=== PATIENT | female | born 1975 | race African-American/Black ===

== ENCOUNTER 2024-11-06 18:37 | Inpatient (IN) | payer OTHER ==
[~2024-11-06] VITALS: Ht 157.5 cm; Wt 60.3 kg
[2024-11-06 19:15] LABS: RED BLOOD CELL COUNT(AUTO) 4.52 MIL/uL (4.0-5.2); RED CELL DISTRIBUTION WIDTH 15.4 % (11.5-15.0); WHITE BLOOD COUNT (AUTO) 19.8 K/uL (4.3-11.0)
[2024-11-06] MEDS ORDERED: VANCOMYCIN 1 GM /D5W 250 ML PB IV ONE (19:15)
[2024-11-06] MEDS ORDERED: MEROPENEM 1 G VIAL IV ONE (19:15)
[2024-11-06] MEDS: MEROPENEM 1 G in IV NS 0.9% 100 ML IV ONE (19:21)
[2024-11-06 19:25] LABS: CALCIUM, SERUM 10.5 mg/dL (8.5-10.1); CREATININE 0.7 mg/dL (0.6-1.3); SODIUM SERUM 135 mmol/L (136-145); UREA NITROGEN, BLOOD 19 mg/dL (7-18)
[2024-11-06] MEDS: IV NS 0.9% 1,000 ML BAG IV ONE ×2 (19:29→21:01)
[2024-11-06 19:31] LABS: ASPARTATE AMINOTRANSFERASE 88 U/L (15-37); TOTAL PROTEIN, SERUM 8.2 g/dL (6.4-8.2)
[2024-11-06 19:36] LABS: INR 1.26 (0.91-1.10)
[2024-11-06 19:39] LABS: LACTIC ACID 2.5 mmol/L (0.4-2.0)
[2024-11-06 19:42] LABS: PLATELET COUNT (AUTO) 131 K/uL (150-450)
[2024-11-06] MEDS: VANCOMYCIN 1 GM in IV D5W 250 ML IV ONE (19:58)
[2024-11-06 20:24] LABS: APPEARANCE,URINE BLOODY (CLEAR)
[2024-11-06 20:31] LABS: FINE GRANULAR CASTS,URINE Rare /LPF (None Seen)
[2024-11-06] MEDS: ENOXAPARIN SODIUM 40 MG/0.4 ML DISP.SYRIN SQ SCH (22:30)
[2024-11-06] MEDS ORDERED: ONDANSETRON HCL/PF 4 MG/2 ML VIAL IVP PRN (22:30)
[2024-11-06] MEDS ORDERED: ACETAMINOPHEN 650 MG/SUPP.RECT RC PRN ×2 (22:30→23:00)
[2024-11-06] MEDS ORDERED: DOSING PER PHARMACY-VANCOMYCIN IV XX PRN (22:30)
[2024-11-06] MEDS: IV NS 0.9% 1,000 ML IV PRN (23:06)
[2024-11-07 04:00] VITALS: BP 96/74; TEMP 98.4; O2SAT 98
[2024-11-07] MEDS: MEROPENEM 500 MG in IV NS 0.9% 50 ML IV ONE (04:48)
[2024-11-07] MEDS ORDERED: MEROPENEM 500 MG in IV NS 0.9% 50 ML IV SCH (05:00)
[2024-11-07 06:55] LABS: PLATELET COUNT (AUTO) 112 K/uL (150-450); RED BLOOD CELL COUNT(AUTO) 3.86 MIL/uL (4.0-5.2); RED CELL DISTRIBUTION WIDTH 15.3 % (11.5-15.0); WHITE BLOOD COUNT (AUTO) 15.0 K/uL (4.3-11.0)
[2024-11-07 07:25] LABS: ASPARTATE AMINOTRANSFERASE 53.0 U/L (15-37); CALCIUM, SERUM 9.3 mg/dL (8.5-10.1); CREATININE 0.6 mg/dL (0.6-1.3); PHOSPHORUS 2.5 mg/dL (2.5-4.9); SODIUM SERUM 140.0 mmol/L (136-145); TOTAL PROTEIN, SERUM 6.8 g/dL (6.4-8.2); UREA NITROGEN, BLOOD 15.0 mg/dL (7-18)
[2024-11-07 08:00] VITALS: BP 114/79; TEMP 98.2; O2SAT 100
[2024-11-07 08:23] LABS: LACTIC ACID 2.2 mmol/L (0.4-2.0)
[2024-11-07] MEDS: MEROPENEM 500MG/NS 50 ML PB IV ONE (08:26)
[2024-11-07] MEDS: PANTOPRAZOLE 40 MG VIAL IV SCH (08:42)
[2024-11-07] MEDS: VANCOMYCIN 1 GM in IV D5W 250ml IV SCH (09:32)
[2024-11-07] MEDS ORDERED: ONDA-97 GT (10:21)
[2024-11-07] MEDS ORDERED: NA P133E RC (10:21)
[2024-11-07] MEDS ORDERED: MAGN400O6 GT (10:21)
[2024-11-07] MEDS ORDERED: OMEP20TA5 GT (10:21)
[2024-11-07] MEDS ORDERED: LEVE100S GT (10:21)
[2024-11-07] MEDS ORDERED: GABA300C PO (10:21)
[2024-11-07] MEDS ORDERED: EZET10TA32 GT (10:21)
[2024-11-07] MEDS ORDERED: MAGN400T52 GT (10:21)
[2024-11-07] MEDS ORDERED: DIVA125C2 GT (10:21)
[2024-11-07] MEDS ORDERED: OXYC5TAB3 GT (10:21)
[2024-11-07] MEDS ORDERED: ATOR10TA GT (10:21)
[2024-11-07] MEDS ORDERED: BISA10SU11 RC (10:21)
[2024-11-07] MEDS ORDERED: LACO10SO GT (10:21)
[2024-11-07] MEDS ORDERED: METO25TA20 GT (10:21)
[2024-11-07] MEDS ORDERED: CHOL100043 GT (10:21)
[2024-11-07] MEDS: THERAHONEY GEL 1.5 OZ TUBE TP SCH (11:05)
[2024-11-07 12:00] VITALS: BP 140/96; TEMP 98.2; O2SAT 100
[2024-11-07] MEDS: MEROPENEM 1 G in IV NS 0.9% 100 ML IV SCH (12:40)
[2024-11-07] MEDS ORDERED: oxyCODONE/APAP (5/325 MG) 1 UDTAB TABLET GT PRN (14:00)
[2024-11-07] MEDS: JEVITY 1.2 CAL 1,000 ML BOTTLE GT PRN (14:14)
[2024-11-07] MEDS: oxyCODONE IR immediate release 5 MG TABLET GT PRN (14:42)
[2024-11-07 16:00] VITALS: BP 127/85; TEMP 98.5; O2SAT 100
[2024-11-07 20:00] VITALS: BP 129/93; TEMP 102.4; O2SAT 97
[2024-11-08] VITALS: BP 140/99; TEMP 99.1; O2SAT 100
[2024-11-08 04:00] VITALS: BP 135/95; TEMP 99.5; O2SAT 97
[2024-11-08 07:15] LABS: PLATELET COUNT (AUTO) 113 K/uL (150-450); RED BLOOD CELL COUNT(AUTO) 3.74 MIL/uL (4.0-5.2); RED CELL DISTRIBUTION WIDTH 14.5 % (11.5-15.0); WHITE BLOOD COUNT (AUTO) 4.8 K/uL (4.3-11.0)
[2024-11-08 07:59] LABS: ASPARTATE AMINOTRANSFERASE 33.0 U/L (15-37); CALCIUM, SERUM 9.8 mg/dL (8.5-10.1); CREATININE 0.4 mg/dL (0.6-1.3); PHOSPHORUS 2.1 mg/dL (2.5-4.9); TOTAL PROTEIN, SERUM 7.1 g/dL (6.4-8.2); UREA NITROGEN, BLOOD 10.0 mg/dL (7-18)
[2024-11-08 08:08] LABS: SODIUM SERUM 137.0 mmol/L (136-145)
[2024-11-08] MEDS: PANTOPRAZOLE 40 MG/PACK PACK GT SCH (08:33)
[2024-11-08 09:32] VITALS: BP 143/110; TEMP 97.7; O2SAT 98
[2024-11-08] MEDS: POTASSIUM CHLORIDE 20 MEQ POWDER PACKET GT ONE (11:06)
[2024-11-08 12:00] VITALS: BP 144/106; TEMP 97.5; O2SAT 96
[2024-11-08 16:00] VITALS: BP 131/105; TEMP 98.1; O2SAT 96
[2024-11-08] MEDS: NEUTRA PHOS 1 POWD.PACKET GT ONE (16:13)
[2024-11-08 20:00] VITALS: BP 132/98; TEMP 97.7; O2SAT 98
[2024-11-09] VITALS (7 sets, daily range): BP systolic 111–137; BP diastolic 44–100; TEMP 98–98.8; O2SAT 92–100
[2024-11-09 07:13] LABS: PLATELET COUNT (AUTO) 142 K/uL (150-450); RED BLOOD CELL COUNT(AUTO) 3.61 MIL/uL (4.0-5.2); RED CELL DISTRIBUTION WIDTH 14.7 % (11.5-15.0); WHITE BLOOD COUNT (AUTO) 3.3 K/uL (4.3-11.0)
[2024-11-09 07:31] LABS: ASPARTATE AMINOTRANSFERASE 25.0 U/L (15-37); CALCIUM, SERUM 9.7 mg/dL (8.5-10.1); CREATININE 0.5 mg/dL (0.6-1.3); PHOSPHORUS 2.0 mg/dL (2.5-4.9); SODIUM SERUM 142.0 mmol/L (136-145); TOTAL PROTEIN, SERUM 7.1 g/dL (6.4-8.2); UREA NITROGEN, BLOOD 10.0 mg/dL (7-18)
[2024-11-09] MEDS: LORAZEPAM INJ 2 MG/ML VIAL IV PRN (11:06)
[2024-11-09] MEDS: POTASSIUM CHLORIDE 20 MEQ POWDER PACKET GT SCH (11:06)
[2024-11-09] MEDS: LEVETIRACETAM SOL (5 ML) 100 MG/ML UDC GT SCH (12:00)
[2024-11-09 12:16] LABS: VALPROIC ACID 3.0 ug/mL (50-100)
[2024-11-09] MEDS: LEVETIRACETAM (500MG) 2,000 MG in IV NS 0.9% 80 ML IV ONE (12:21)
[2024-11-09] MEDS: LACOSAMIDE 200 MG in IV NS 0.9% 100 ML IV ONE (12:21)
[2024-11-09] MEDS: DIVALPROEX SODIUM 125 MG CAP.SPRINK GT SCH (12:22)
[2024-11-09] MEDS: GABAPENTIN 300 MG CAPSULE GT SCH (12:23)
[2024-11-09] MEDS: LACOSAMIDE ORAL SOLN 50 MG/5 ML UDC GT SCH (12:26)
[2024-11-09] MEDS: Sodium Phosphate 30 MMOL in IV NS 0.9% 250 ML IV SCH (12:59)
[2024-11-09 14:37] LABS: EOSINOPHILS % (MANUAL) 1 % (0-4); LYMPHOCYTES % (MANUAL) 14 % (16-48); MONOCYTES % (MANUAL) 15 % (0-11.0); NEUTROPHILS % (MANUAL) 70 (42-76); PLATELET ESTIMATE ADEQUATE
[2024-11-09] MEDS: METOPROLOL TARTRATE 25 MG TABLET GT SCH (17:36)
[2024-11-09] MEDS ORDERED: LEVETIRACETAM (500MG) 1,500 MG in IV NS 0.9% 85 ML IV SCH (21:00)
[2024-11-09] MEDS ORDERED: LACOSAMIDE 100 MG in IV NS 0.9% 50 ML IV SCH (21:00)
[2024-11-09] MEDS: EZETIMIBE 10 MG TABLET GT SCH (21:25)
[2024-11-09] MEDS: ATORVASTATIN 10 MG TABLET GT SCH (21:25)
[2024-11-09 22:45] LABS: PREGNANCY TEST URINE QUAL NEGATIVE (NEGATIVE)
[2024-11-10] VITALS: BP 125/84; TEMP 98.3; O2SAT 100
[2024-11-10 04:00] VITALS: BP 102/85; TEMP 98.4; O2SAT 100
[2024-11-10 08:00] VITALS: BP 115/82; TEMP 98.2; O2SAT 99
[2024-11-10 12:00] VITALS: BP 131/93; TEMP 98.3; O2SAT 100
[2024-11-10 16:00] VITALS: BP 135/98; TEMP 98.4; O2SAT 100
[2024-11-10 16:02] LABS: PLATELET COUNT (AUTO) 193 K/uL (150-450); RED BLOOD CELL COUNT(AUTO) 3.57 MIL/uL (4.0-5.2); RED CELL DISTRIBUTION WIDTH 14.2 % (11.5-15.0); WHITE BLOOD COUNT (AUTO) 3.1 K/uL (4.3-11.0)
[2024-11-10 16:14] LABS: CALCIUM, SERUM 9.3 mg/dL (8.5-10.1); CREATININE 0.4 mg/dL (0.6-1.3); SODIUM SERUM 144.0 mmol/L (136-145); UREA NITROGEN, BLOOD 6.0 mg/dL (7-18)
[2024-11-10 16:18] LABS: PHOSPHORUS 2.4 mg/dL (2.5-4.9)
[2024-11-10 20:00] VITALS: BP 118/83; TEMP 98.8; O2SAT 100
[2024-11-11] VITALS: BP 128/89; TEMP 98.4; O2SAT 100
[2024-11-11 01:07] LABS: FOLIC ACID 16.3 ng/mL (>3.0)
[2024-11-11 04:00] VITALS: BP 130/94; TEMP 98.4; O2SAT 100
[2024-11-11 06:50] LABS: PLATELET COUNT (AUTO) 212 K/uL (150-450); RED BLOOD CELL COUNT(AUTO) 3.65 MIL/uL (4.0-5.2); RED CELL DISTRIBUTION WIDTH 14.8 % (11.5-15.0); WHITE BLOOD COUNT (AUTO) 3.3 K/uL (4.3-11.0)
[2024-11-11 07:07] LABS: CALCIUM, SERUM 9.7 mg/dL (8.5-10.1); CREATININE 0.6 mg/dL (0.6-1.3); SODIUM SERUM 144.0 mmol/L (136-145); UREA NITROGEN, BLOOD 5.0 mg/dL (7-18)
[2024-11-11 08:00] VITALS: BP 112/74; TEMP 98.1; O2SAT 98
[2024-11-11] MEDS ORDERED: MERO1PIG IV (11:05)
[2024-11-11 12:03] VITALS: BP 118/91; TEMP 97.8; O2SAT 100
[2024-11-12 22:06] LABS: VITAMIN B1 THIAMINE,WB 124.8 nmol/L (66.5-200.0)
[2024-11-14 05:07] LABS: METHYLMALONIC ACID 88.0 nmol/L (0-378)
== END 2024-11-11 15:40 | DRG 720 ==
LOC: ER 18:49 → TELE1 20:53 → TELE-TD 11-09 11:35 → TELE1 11-10 08:25
PROVIDERS: ADMIT Nurse Practitioner Family; ATTEND Internal Medicine
DX: A41.9 Sepsis, unspecified organism (principal); R40.3 Persistent vegetative state; G93.40 Encephalopathy, unspecified; E87.20 Acidosis, unspecified; D68.59 Other primary thrombophilia; E44.1 Mild protein-calorie malnutrition; E87.1 Hypo-osmolality and hyponatremia; I95.9 Hypotension, unspecified; G82.20 Paraplegia, unspecified; I11.0 Hypertensive heart disease with heart failure; I50.9 Heart failure, unspecified; E88.09 Other disorders of plasma-protein metabolism, not elsewhere classified; E86.1 Hypovolemia; N39.0 Urinary tract infection, site not specified; E78.5 Hyperlipidemia, unspecified; E83.52 Hypercalcemia; G40.909 Epilepsy, unspecified, not intractable, without status epilepticus; R13.10 Dysphagia, unspecified; Z66 Do not resuscitate; Z87.820 Personal history of traumatic brain injury; Z88.0 Allergy status to penicillin; Z87.440 Personal history of urinary (tract) infections; B96.1 Klebsiella pneumoniae [K. pneumoniae] as the cause of diseases classified elsewhere; E87.6 Hypokalemia; R31.9 Hematuria, unspecified; R73.9 Hyperglycemia, unspecified; Z93.1 Gastrostomy status; Z68.24 Body mass index [BMI] 24.0-24.9, adult; R65.20 Severe sepsis without septic shock; B96.20 Unspecified Escherichia coli [E. coli] as the cause of diseases classified elsewhere; Z16.12 Extended spectrum beta lactamase (ESBL) resistance; Z16.24 Resistance to multiple antibiotics
CPT/HCPCS: 36415; 70450-TC; 71045-TC; 80048-TC; 80053-TC; 80076-TC; 80164-TC; 80202-TC; 81001; 82607-TC; 82962-TC; 83605-TC; 83735-TC; 83921; 83970; 84100-TC; 84425; 84443-TC; 84484-TC; 84703-TC; 85025-TC; 85027-TC; 85730-TC; 87040-TC; 87081-TC; 87086-TC; 87186-TC; A4223; A9563; G0378; J1650; J1953; J2060; J2185; J2470; J3373; J7030; J7050; J7060